=== PATIENT | female | born 1990 | race Hispanic/Latino ===

== ENCOUNTER 2017-05-25 18:12 | Emergency (ER) | payer SELFPAY | END 2017-05-25 20:08 | disposition home or self-care (01) | LOC: ERS 18:12 | DX: J11.1 Influenza due to unidentified influenza virus with other respiratory manifestations (principal) | CPT/HCPCS: 99283 ==

== ENCOUNTER 2017-06-28 14:46 | Emergency (ER) | payer SELFPAY ==
[2017-06-28] MEDS ORDERED: Morphine 2 MG/ML SYRINGE ONE (15:27)
[2017-06-28] MEDS ORDERED: Ketorolac Tromethamine 30 MG/ML VIAL ONE ×2 (15:27→17:40)
[2017-06-28] MEDS ORDERED: Diazepam 5 MG TAB ONE (15:27)
--- NOTE | 2017-06-28 16:07 | RAD ---
THREE VIEW LUMBAR SPINE 06/28/17 INDICATION: Back pain. FINDINGS: There is no compression fracture or subluxation. There is an intrauterine device overlying the pelvis . Disc space heights are preserved. IMPRESSION: No acute osseous abnormality of the lumbar spine. POS: SUSAN
[2017-06-28 17:25] LABS: Bilirubin Negative (Negative); Blood, Urine Trace (Negative); Clarity CLEAR (Clear); Glucose, Urine (Dipstick) Negative (Negative); Leukocyte Small (Negative); Nitrite Negative (Negative); Protein, Urine (Dipstick) Negative (Neg-Trace); Specific Gravity, Urine 1.018 (1.002-1.036); Urobilinogen 0.2 mg/dL (0.2-1.0)
[2017-06-28 17:26] LABS: Bacteria/HPF 1+ HPF (None Seen); Hyaline Casts/LPF 0-3 HYALINE CAST LPF (0-3 Hyaline); Pathc Cast-AUWi Flag 0.13 (0-2.49); Squamous Epithelial 0-3 HPF (0-3)
[2017-06-28 17:28] LABS: Pregnancy Test - Urine (BHCG) Negative (Negative); Pregu Control Background? CLEAR/WHITE (CLR/WHITE); Pregu Control Bar Appear? YES (CONTROL BAR); Specific Gravity 1.018 (1.002-1.036)
== END 2017-06-28 18:54 | disposition home or self-care (01) ==
LOC: ERS 14:46
DX: N39.0 Urinary tract infection, site not specified (principal); M54.6 Pain in thoracic spine
CPT/HCPCS: 72100; 81003; 81015; 81025; 87086; 96361; 96374; 96375; 96376; J1885; J2270

== ENCOUNTER 2019-07-10 05:15 | Observation (INO) | payer SELFPAY ==
[2019-07-10] MEDS ORDERED: Acetaminophen 500 MG TAB ONE (05:26)
[2019-07-10] MEDS ORDERED: Ondansetron PF 4 MG/2 ML Vial ONE ×3 (05:26→11:49)
[2019-07-10] MEDS ORDERED: Ketorolac Tromethamine 30 MG/ML VIAL ONE ×2 (05:26→11:49)
[2019-07-10] MEDS ORDERED: cefTRIAXone\\ROCEPHIN 2 GM VIAL ONE (05:30)
[2019-07-10 05:50] LABS: Hemoglobin 11.8 g/dL (12.0-16.0); Mean Corpuscular Hemoglobin 24.6 pg (27.0-31.0); Mean Corpuscular Volume 79.4 fL (78.0-98.0); Mean Platelet Volume 10.7 fL (7.4-10.4); Platelet Count 288 thou/uL (130-400); RBC Distribution Width 15.6 % (11.5-14.5); Red Blood Cell (RBC) Count 4.78 mill/uL (4.20-5.40); White Blood Cell (WBC) Count 22.3 thou/uL (4.8-10.8)
[2019-07-10 05:57] LABS: BHCG - Serum Negative (NEGATIVE); Pregs Control Background? CLEAR/WHITE (CLR/WHITE); Pregs Control Bar Appear? YES (CONTROL BAR)
[2019-07-10 06:13] LABS: Band 10 % (5-11); Hypochromia SLIGHT = 6-15 cells (100X) (0-5/hpf); Lymphocytes 2 % (21-51); MDiff Complete? YES; Neutrophil 88 % (42-75); Platelet Morphology Comment Appears Adequate
[2019-07-10 06:20] LABS: Bacteria/HPF None Seen HPF (None Seen); Bilirubin Negative (Negative); Blood, Urine Trace (Negative); Clarity Clear (Clear); Glucose, Urine (Dipstick) Normal (Negative); Leukocyte Negative Leu/uL (Negative); Nitrite Negative (Negative); Protein, Urine (Dipstick) Negative (Neg-Trace); RBC/HPF 0-3 HPF (0-3); Squamous Epithelial 0-3 HPF (0-3); Urobilinogen Normal mg/dL (Less than 2); WBC/HPF 0-3 HPF (0-3)
[2019-07-10 06:20] LABS: ALT (SGPT) 15 U/L (8-55); AST (SGOT) 33 U/L (5-34); Albumin 4.7 g/dL (3.5-5.0); Alkaline Phosphatase 82 U/L (40-110); Anion Gap 18 mmol/L (10-20); BUN (Urea Nitrogen) 11 mg/dL (7.0-18.7); Bilirubin, Total 0.5 mg/dL (0.2-1.2); Calc. Creatinine Clearance 0 mL/min (70-130); Calcium 9.3 mg/dL (7.8-10.44); Carbon Dioxide 19 mmol/L (22-29); Chloride 104 mmol/L (98-107); Estimated GFR-MDRD Greater than 90; Globulin 4.3 g/dL (2.4-3.5); Glucose 97 mg/dL (70-105); Potassium 4.1 mmol/L (3.5-5.1); Sodium 137 mmol/L (136-145)
[2019-07-10] MEDS ORDERED: Ibuprofen 600 MG TAB PO PRN (07:49)
[2019-07-10] MEDS ORDERED: Acetaminophen 325 MG TAB PO PRN (07:49)
[2019-07-10] MEDS ORDERED: Morphine 2 MG/ML SYRINGE SLOW IVP PRN (07:49)
[2019-07-10] MEDS ORDERED: Dextrose 50% Abboject 50 ML SYRINGE SLOW IVP PRN (07:58)
[2019-07-10] MEDS ORDERED: Promethazine HCl 25 MG/ML VIAL IM PRN ×2 (07:58→18:39)
[2019-07-10] MEDS ORDERED: Dextrose 5% in Water 1,000 ML IV PRN (07:58)
[2019-07-10] MEDS ORDERED: Ondansetron PF 4 MG/2 ML Vial IVP PRN (07:58)
[2019-07-10] MEDS ORDERED: Piperacillin/Tazobactam 4.5 GM VIAL ONE (08:19)
--- NOTE | 2019-07-10 08:38 | HP ---
This is Alvin Vaughn PA-C dictating a report for Erich Ventura DO. REFERRED BY: The emergency department, Dr. Scott. REASON FOR CONSULTATION: Abdominal pain, concern for appendicitis. HISTORY OF PRESENT ILLNESS: Ms. Hanson is a 28-year-old female, no significant past medical history, presenting to the emergency department with chief complaint of abdominal pain, generalized malaise, and fever. Found to have leukocytosis, leftward shift, febrile with elevated heart rate. The patient states abdominal pain last night, slight in the right lower quadrant. Woke at 3:00 a.m. with severe pain to the right lower quadrant and now bilateral lower abdomen. No cough. No congestion. Trace nausea, has not eaten since last night. No diarrhea. No dysuria. The patient has been given Toradol, Tylenol. Her pain is improved somewhat. It is noted again that she had elevated white blood cell count, leftward shift. Renal function is preserved. AST and ALT normal. The patient has been given 2 L of fluid. Her heart rate has downtrend from 120s to the 100s. She is on maintenance fluid at 125 mL/h. She has been given dose of vancomycin and ceftriaxone. CT abdomen and pelvis shows possible early appendicitis. No inflammation surrounding. Urine is bland. She has an IUD in place. She has no dysuria or vaginal discharge. She has no CVA tenderness. REVIEW OF SYSTEMS: Pertinent positives and negative as per HPI, otherwise regarded as negative. PAST MEDICAL HISTORY: Denies. PAST SURGICAL HISTORY: Denies. MEDICATIONS: Denies. ALLERGIES: DENIES. SOCIAL HISTORY: The patient socially drinks alcohol. Occasionally, she has no drugs. No tobacco abuse. FAMILY HISTORY: Significant for renal cell carcinoma with metastases leading to her mother's . Father is healthy to the best of her knowledge. PHYSICAL EXAMINATION: VITAL SIGNS: Temperature initially is 103.3, heart rate now is 100, blood pressure is 103/73, respiratory rate is 18, and she is saturating 99% on room air. GENERAL: This is a 28-year-old female, who is nontoxic appearing, sitting up in bed, in no acute distress. HEENT: Normocephalic, atraumatic. Trachea is midline. No JVD is appreciated. RESPIRATORY: Equal rise and fall. Bilateral breath sounds. Clear to auscultation in upper and lower lobes bilaterally. CARDIOVASCULAR: Slight tachycardia, rate of 100. Regular rhythm. No murmurs are appreciated. No edema. Strong pulses. ABDOMEN: Obese and is soft. She has no guarding or alex rigidity. She has tenderness to deep palpation of the right lower quadrant, but also to the left lower quadrant. She does have trace rebound tenderness. She has no pain to palpation of the suprapubic area. She has no CVA tenderness. PELVIS: Stable. MUSCULOSKELETAL: Moves extremities well. NEUROLOGIC: Alert and oriented to person, place, time, and event. SKIN: [place], warm, and dry. DIAGNOSTIC CRITERIA: CT abdomen and pelvis shows some thickening of the distal appendix at 7.5 mm. No inflammatory changes. Small amount of free fluid about the pelvis. Laboratory data from today shows a white blood cell count of 22.3, platelets 288, hemoglobin and hematocrit of 11.8 and 3.0 respectively. She does have a neutrophil predominance of 88%. Chemistries; sodium is 137, potassium 4.1, chloride is 104, CO2 is 19, anion gap is 18, creatinine 0.72, and glucose of 97. Lactic acid was 4.3, calcium is 9.3, total bilirubin 0.5. AST and ALT are 33 and 15, and alkaline phosphatase is 92. test is negative. Urine with a trace amount of blood, but otherwise is clear yellow. No nitrites or leukocyte esterase and no bacteria is appreciated. Interventions in the emergency department, 1. 2 L of fluid. 2. 1 g of ceftriaxone. 3. Vancomycin. 4. Toradol. 5. Tylenol. 6. Zofran. ASSESSMENT: 1. Severe sepsis without shock likely intraabdominal in nature. 2. Possible early appendicitis. 3. Lactic acidosis, likely secondary to severe sepsis. PLAN: 1. Keep the patient n.p.o. 2. We will give a dose of Zosyn to cover anaerobes and intraabdominal pathology. 3. Continue fluids at 125 per hour. 4. Repeat lactic acid now. 5. Very well, may need appendectomy, explained to the patient. Last oral intake was 930. She has never had anesthesia in the past. She is amenable to the surgery. We will discuss further with Dr. Ventura. 6. Check a lipase level now. 7. Pain control as needed. 8. Tylenol or ibuprofen for fever. 9. Prophylaxis will be SCDs and Pepcid. 10. Full code. 11. Access of peripheral IV. 12. Diet will be n.p.o. except for medications with sips. 13. Disposition will be OR/surgery prieto. Coordinated care with the emergency department team, updated the patient and family at the bedside. I answered all their questions. This plan will be discussed with Dr. Ventura and can be updated as needed. Job ID: [id number]
--- NOTE | 2019-07-10 08:39 | CT ---
PRELIMINARY REPORT/[facility]/EMERGENCY AFTER HOURS PROCEDURE: EXAM: CT Abdomen and Pelvis HISTORY: ER9; NO PREVIOUS ON PACS; 28 yo F presents to ED with c/o abdominal pain. pt reports lower a bdominal pain that started last night around 9pm, with associated nausea, dysuria, fever, chills, and lower back pain. Patient has no surgical history COMPARISON: None submitted. FINDINGS: Lung bases demonstrate no acute findings. No pneumoperitoneum. No small bowel obstruction. Probable under distention or possibly mild wall th ickening of proximal jejunal loops. Distal aspect of the appendix is mildly thickened measuring up to 7.5 mm. No surrounding inflammator y changes are seen but difficult to exclude early acute appendicitis. Recommend correlation with clin ical findings. No calcified gallstones. Probable fatty infiltration of the falciform ligament. No CT evidence of a cute pancreatitis. No acute findings in the spleen and the adrenals. The kidneys enhance symmetrically and demonstrate no hydronephrosis. Intrauterine device in the expected location. No acute findings seen in the adnexa. Small free flui d is nonspecific. No diverticulitis. IMPRESSION: Distal aspect of the appendix is mildly thickened measuring up to 7.5 mm. No surrounding inflammator y changes are seen but difficult to exclude early acute appendicitis. Recommend correlation with clin ical findings. Intrauterine device in the expected location. No acute findings seen in the adnexa. Small free flui d is nonspecific. ELECTRONICALLY SIGNED BY: Ayla Whitmore MD Jul 10, 2019 7:07:43 AM [employer] ARCHIT[employer] This report is intended for review by the ordering physician only, in accordance of law. If you recei ve this report in error, please call [facility] at [phone]. FINAL REPORT EMERGENCY AFTER HOURS CT ABDOMEN AND PELVIS: IMPRESSION: The mid to distal aspects of the appendix appear hyperdense peripherally with respect to the proximal portions of the appendix and also appears mildly thickened with respect to the proximal appendix. Fi ndings may reflect hyperenhancement of the appendix related to very early acute appendicitis. There i s no inflammatory fat stranding evident. I agree with the preliminary interpretation given by [facility]. POS: TPC
[2019-07-10] MEDS ORDERED: Morphine 2 MG/ML SYRINGE ONE (10:35)
[2019-07-10 11:03] LABS: Lactic Acid 2.5 mmol/L (0.5-2.2)
[2019-07-10] MEDS ORDERED: ePHEDrine/0.9% NaCl/PF SYRINGE 50 mg/10 ml ONE (11:49)
[2019-07-10] MEDS ORDERED: Succinylcholine Chloride 20 MG/ML 10 ml SYRINGE FS ONE (11:49)
[2019-07-10] MEDS ORDERED: Metoclopramide HCl 10 MG/2 ML VIAL ONE (11:49)
[2019-07-10] MEDS ORDERED: Rocuronium Bromide 10 MG/ML (10ML VIAL) ONE (11:49)
[2019-07-10] MEDS ORDERED: Lidocaine 1% PF 5 ML VIAL ONE (11:49)
[2019-07-10] MEDS ORDERED: Dexamethasone 20 MG/5 ML VIAL ONE (11:49)
[2019-07-10] MEDS ORDERED: PROPOFOL 200 MG/20 ML VIAL ONE (11:49)
[2019-07-10] MEDS ORDERED: PHENYLEPHRINE-NS 100 MCG/ML 10 ML SYRINGE ONE (11:49)
[2019-07-10 13:30] VITALS: BP 109/70; TEMP 98.2
[2019-07-10] MEDS: Sodium Chloride 0.9% 1,000 ML IV SCH ×2 (13:51→19:14)
[2019-07-10] MEDS ORDERED: Iopamidol-370 76% 500 ML 1 ML ONE ×2 (13:51→13:52)
[2019-07-10] MEDS: Famotidine 20 MG TAB PO SCH ×2 (14:13→20:52)
[2019-07-10] MEDS ORDERED: Bupivacaine PF 0.5% 30 ML VIAL ONE (16:52)
[2019-07-10] MEDS ORDERED: Lidocaine 1% w/Epinephrine 1:100K 20 ML VIAL ONE (16:52)
[2019-07-10] MEDS ORDERED: Famotidine/PF 20 mg/2ml Vial ONE (17:06)
[2019-07-10] MEDS ORDERED: Meperidine HCl/PF 25 MG/ML VIAL ONE (17:06)
[2019-07-10] MEDS ORDERED: Fentanyl 100 MCG/2 ML VIAL ONE ×2 (17:06→19:21)
[2019-07-10] MEDS ORDERED: Midazolam HCl 2 mg/2 ml Vial ONE (17:06)
[2019-07-10] MEDS ORDERED: Promethazine HCl 25 MG/ML VIAL SLOW IVP PRN (18:39)
[2019-07-10] MEDS ORDERED: Meperidine HCl/PF 25 MG/ML VIAL SLOW IVP PRN (18:39)
[2019-07-10] MEDS ORDERED: Ondansetron HCl/PF 4 MG/2 ML Vial IVP PRN (18:39)
[2019-07-10] MEDS ORDERED: traMADol HCl 50 MG TAB PO PRN ×2 (19:02)
[2019-07-10] MEDS ORDERED: Acetaminophen 325 MG TAB PO SCH (23:59)
--- NOTE | 2019-07-11 00:35 | DIS ---
DATE OF ADMISSION: 07/10/2019 DATE OF DISCHARGE: 07/10/2019 ADMISSION DIAGNOSIS: Appendicitis. DISCHARGE DIAGNOSIS: Appendicitis. CONSULTING PHYSICIAN: None. PROCEDURES: The patient went to the OR with Dr. Ventura on July 10, 2019, and had a laparoscopic appendectomy. HOSPICE COURSE: The patient is a 28-year-old female who presented to the emergency department via POV complaining of right lower abdominal pain. She was found to have an acute appendicitis. She was admitted in the morning and resuscitated during the day on the floor. She did go to the OR with Dr. Ventura late in the afternoon and she had a laparoscopic appendectomy. Postoperatively, the patient's pain was well controlled. She was ambulating without difficulty and she voided without issues. Subsequently, she was discharged home. PHYSICAL EXAMINATION: The patient was afebrile, hemodynamically stable with no signs of acute distress. Her surgical sites are clean, dry, and intact with no signs of infection. DISCHARGE INSTRUCTIONS: The patient was discharged home. Clear liquid diet, advance as tolerated. Activity as tolerated. DISCHARGE MEDICATIONS: Tramadol p.r.n. for pain. FOLLOWUP APPOINTMENTS: The patient will follow up with Dr. Ventura in clinic on July 24 at 2:00 p.m. This is a summary of the patient's hospitalization. For full details, please see her medical record in its entirety. Job ID: [id number]
--- NOTE | 2019-07-11 01:45 | OP ---
DATE OF PROCEDURE: 07/10/2019 PREOPERATIVE DIAGNOSIS: Acute appendicitis. POSTOPERATIVE DIAGNOSIS: Acute appendicitis. OPERATION PERFORMED: Laparoscopic appendectomy. ANESTHESIA: General endotracheal. ESTIMATED BLOOD LOSS: 5 mL. FLUIDS: Given 1300 mL crystalloids. COUNTS: Sponge and instrument counts were verified as correct x2. COMPLICATIONS: None apparent at the time of operation. INDICATIONS FOR OPERATION: A 28-year-old woman presented with insidious onset periumbilical abdominal pain, which started in the right lower quadrant. Clinical radiographic examination was consistent with acute appendicitis, for which the patient was brought to the operating room for appendectomy. Findings are consistent with dilated, but nonperforated retrocecal appendix. DESCRIPTION OF PROCEDURE: Informed consent was obtained from the patient, who was brought to the operating room and placed in supine position. Following general anesthesia, a Devine catheter was inserted and placed to bedside drain. The abdomen was sterilely prepped and draped in usual fashion. The skin below the umbilicus was infiltrated with 0.25% Marcaine with epinephrine. A small curvilinear infraumbilical incision was made using 11 scalpel. Umbilical stalk grasped with Immanuel and elevated. Veress needle was inserted through the incision and placed in the peritoneal cavity through which the abdomen was insufflated with 3 L of CO2 gas. Intraabdominal pressure was noted at 2 mmHg. Following abdominal insufflation, Veress needle was removed and a 5 mm trocar introduced using a Visiport under laparoscopy. Laparoscopy confirmed proper placement of the port, no injuries to underlying structures. Additional laparoscopy reveals right lower quadrant partially obscured by omental adhesions. Under direct laparoscopy, two 5 mm suprapubic and left lower quadrant ports were placed after the overlying skin were infiltrated with 0.25% Marcaine with epinephrine. Appropriate incision was made. The patient was placed in a Trendelenburg position, rotated to her left. I introduced Prestige grasper through the left lower quadrant port site, using this to bluntly take down omental adhesions to expose dilated retrocecal appendix. Using LigaSure device, the mesoappendix was sterilely divided down to the base with good hemostasis. The appendix itself was divided at the appendiceal-cecal junction between endo loop. Appendix was delivered of the abdominal cavity using an EndoCatch. Operative site was inspected for good hemostasis. Finding no other pathology, laparoscopy was terminated. The left lower quadrant port site was inspected. The fascia was dilated to allow exit of the appendix. Therefore, the fascia was closed using 0 Vicryl suture and Endoclosure device on the laparoscopy. The abdomen was then desufflated. All ports and instruments removed and accounted for. Skin incision was closed using 4-0 Monocryl suture in subcuticular fashion. Dermabond was applied over incisional closure. The patient tolerated the operation without any apparent complication and was returned to recovery room in satisfactory condition. Job ID: [id number]
== END 2019-07-10 21:46 | disposition home or self-care (01) ==
LOC: ERS 05:15 → SURG A 08:00
PROVIDERS: ADMIT Surgery; ATTEND Surgery
PROC: 0DTJ4ZZ Resection of Appendix, Percutaneous Endoscopic Approach (ICD-10-PCS; principal; 2019-07-10)
DX: A40.9 Streptococcal sepsis, unspecified (principal); K35.80 Unspecified acute appendicitis; R65.20 Severe sepsis without septic shock; E87.2 Acidosis
CPT/HCPCS: 36415; 51701; 74177; 80053; 81003; 81015; 83605; 83690; 84703; 85025; 87040; 87077; 87149; 87804; 88304; 96361; 96365; 96366; 96367; 96375; 96376; A4353; G0378; J0696; J1100; J1885; J2001; J2175; J2250; J2270; J2405; J2543; J2704; J2765; J3010; J3370; Q9967; S0020; S0028

== ENCOUNTER 2020-06-29 19:15 | Emergency (ER) | payer OTHER, SELFPAY ==
--- NOTE | 2020-06-29 20:23 | RAD ---
LEFT KNEE FOUR VIEWS: History: Injury, left knee pain. FINDINGS: No acute fracture or dislocation identified. IMPRESSION: As above. POS: OFF
[2020-06-29] MEDS ORDERED: Ketorolac Tromethamine 30 MG/ML VIAL ONE (20:27)
[2020-06-29] MEDS ORDERED: HYDROcodone/Acetaminophen 5/325 mg Tablet ONE (20:27)
== END 2020-06-29 21:20 | disposition home or self-care (01) ==
LOC: ERS 19:15
DX: M25.562 Pain in left knee (principal); M79.89 Other specified soft tissue disorders
CPT/HCPCS: 96372; J1885

== ENCOUNTER 2020-11-09 10:36 | Emergency (ER) | payer SELFPAY ==
[2020-11-09] MEDS ORDERED: Ketorolac Tromethamine 30 MG/ML VIAL ONE (11:11)
[2020-11-09] MEDS ORDERED: HYDROcodone/Acetaminophen 5/325 mg Tablet ONE (11:11)
== END 2020-11-09 11:40 | disposition home or self-care (01) ==
LOC: ERS 10:36
DX: M25.562 Pain in left knee (principal); M25.462 Effusion, left knee
CPT/HCPCS: 96372; J1885

== ENCOUNTER 2024-04-08 01:26 | Emergency (ER) | payer OTHER, SELFPAY ==
[2024-04-08 03:01] LABS: #Basophils 0.03 10x3/uL (0.0-0.2); %Basophils 0.3 % (0.0-1.0); %Lymphocytes 17.7 % (21.0-51.0); %Monocytes 6.3 % (0.0-10.0); %Neutrophils 74.3 % (42.0-75.0); Hematocrit 40.5 % (36.0-47.0); Hemoglobin 13.9 g/dL (12.0-16.0); Mean Corpuscular HGB CONC 34.3 g/dL (32.0-36.0); Mean Corpuscular Hemoglobin 32.8 pg (27.0-31.0); Mean Corpuscular Volume 95.5 fL (78.0-98.0); Mean Platelet Volume 11.8 fL (7.4-10.4); Platelet Count 231 10x3/uL (130-400); RBC Distribution Width 12.7 % (11.5-14.5); Red Blood Cell (RBC) Count 4.24 mill/uL (4.20-5.40)
[2024-04-08 03:15] LABS: ALT (SGPT) 21 U/L (8-55); AST (SGOT) 21 U/L (5-34); Albumin 3.9 g/dL (3.5-5.0); Alkaline Phosphatase 71 U/L (40-110); Anion Gap 14 mmol/L (10-20); BUN (Urea Nitrogen) 16 mg/dL (7.0-18.7); Bilirubin, Total 0.4 mg/dL (0.2-1.2); Calc. Creatinine Clearance 0 mL/min (70-130); Calcium 8.8 mg/dL (7.8-10.44); Carbon Dioxide 20 mmol/L (22-29); Chloride 108 mmol/L (98-107); Estimated GFR 107; Globulin 3.4 g/dL (2.4-3.5); Glucose 123 mg/dL (70-105); Lipase 13 U/L (8-78); Potassium 3.4 mmol/L (3.5-5.1); Protein, Total 7.3 g/dL (6.0-8.3); Sodium 139 mmol/L (136-145)
[2024-04-08 03:28] LABS: Bacteria/HPF 1+ HPF (None Seen); Bilirubin Negative (Negative); Blood, Urine 3+ (Negative); CAUTI Indications for Culture Pelvic or flank pain; Clarity Extra Turbid (Clear); Glucose, Urine (Dipstick) Normal (Negative); Ketone, Urine Negative (Negative); Leukocyte 75 Leu/uL (Negative); Nitrite Negative (Negative); Protein, Urine (Dipstick) 50 mg/dL (Neg-Trace); RBC/HPF Greater than 50 HPF (0-3); Specific Gravity, Urine 1.024 (1.002-1.036); Squamous Epithelial None Seen HPF (0-3); Urobilinogen Normal mg/dL (Less than 2); Yeast-Budding 1+ HPF (None Seen); pH, Urine 6.5 (5.0-9.0)
[2024-04-08 03:29] LABS: Pregnancy Test - Urine (BHCG) Negative (Negative); Pregu Control Background? CLEAR/WHITE (CLR/WHITE); Pregu Control Bar Appear? YES (CONTROL BAR); Specific Gravity 1.024 (1.002-1.036); Urine Culture Reflex Yes Yes
[2024-04-08] MEDS ORDERED: cefTRIAXone (ROCEPHIN) 1 GM VIAL ONE (04:05)
[2024-04-08] MEDS ORDERED: Ketorolac Tromethamine 30 MG (1 mL) VIAL ONE (04:05)
[2024-04-08] MEDS ORDERED: Sodium Chloride 0.9% 100 ML ONE (04:05)
[2024-04-08] MEDS ORDERED: Ondansetron PF 4 MG/2 ML Vial ONE (04:05)
[2024-04-08] MEDS ORDERED: Morphine 4 MG/ML VIAL ONE (06:47)
== END 2024-04-08 06:52 | disposition home or self-care (01) ==
LOC: ERS 01:26
DX: N13.2 Hydronephrosis with renal and ureteral calculous obstruction (principal); Z55.6 Problems related to health literacy
CPT/HCPCS: 36415; 74176; 76856; 80053; 81001; 81025; 83690; 85025; 87086; 96365; 96366; 96375; J0696; J1885; J2272; J2405